=== PATIENT | male | born 1950 | race Caucasian/White ===

== ENCOUNTER → 2021-05-01 | Outpatient (CLI) | payer MEDICARE, OTHER ==
--- NOTE | 2021-05-01 09:23 | RAD ---
EXAM: Abdomen sonogram. HISTORY: Elevated bilirubin. TECHNIQUE: Sonographic imaging of the abdomen was performed. COMPARISON: None. FINDINGS: The liver is enlarged. No focal hepatic lesion is seen. There is debris within the gallblad hayes. There is no evidence of cholecystitis. The common bile duct is normal in caliber for patient age , measuring 6 mm. The right kidney demonstrates cortical thinning. There is no hydronephrosis or alejandro d or cystic renal lesion. The pancreas, inferior vena cava and aorta are obscured due to bowel gas. IMPRESSION: 1. Mild hepatomegaly. 2. Gallbladder debris. There is no convincing cholelithiasis or cholecystitis. Electronically signed by: Elina Mora MD (05/01/2021 9:20 AM) [facility]
== END ==
LOC: US 08:44
PROVIDERS: ATTEND Family Medicine
DX: R16.0 Hepatomegaly, not elsewhere classified (principal); R17 Unspecified jaundice
CPT/HCPCS: 76705